=== PATIENT | male | born 1960 | race Caucasian/White ===

== ENCOUNTER 2016-09-13 01:39 | Emergency (ER) | payer BC, OTHER ==
[2016-09-13] MEDS ORDERED: ONDANSETRON 4 MG/2 ML VIAL ONE ×3 (02:21→04:49)
[2016-09-13] MEDS ORDERED: HYDROmorphone 1 MG/ML SYRINGE ONE ×2 (02:21→04:43)
[2016-09-13] MEDS: ONDANSETRON 4 MG/2 ML VIAL IVP STA ×3 (02:34→05:12)
[2016-09-13] MEDS: SODIUM CHLORIDE 0.9% 1,000 ML IV ONE (02:34)
[2016-09-13] MEDS: HYDROmorphone 1 MG/ML SYRINGE IVP STA ×3 (02:34→05:12)
[2016-09-13] MEDS ORDERED: SULFAMETH/TRIMETH DS 800/160 MG TABLET PO ONE (03:31)
[2016-09-13] MEDS ORDERED: metroNIDAZOLE 500 MG/100 ML 100 ML ONE (03:31)
[2016-09-13] MEDS: metroNIDAZOLE 500 MG/100 ML 100 ML IV ONE (03:42)
[2016-09-13] MEDS: SULFAMETH/TRIMETH DS 800/160 MG TABLET PO STA (03:42)
[2016-09-13] MEDS ORDERED: PROMETHAZINE 25 MG/1 ML VIAL ONE (05:16)
[2016-09-13] MEDS: PROMETHAZINE INJ 12.5 MG in SODIUM CHLORIDE 0.9% 50 ML IV STA (05:23)
== END 2016-09-13 06:18 | disposition home or self-care (01) ==
DX: K57.32 Diverticulitis of large intestine without perforation or abscess without bleeding (principal); K40.20 Bilateral inguinal hernia, without obstruction or gangrene, not specified as recurrent; Z91.041 Radiographic dye allergy status
CPT/HCPCS: 36415; 74176; 80053; 81003; 83690; 85025; 96365; 96367; 96375; 96376; 99283; 99285; A9270; J1170

== ENCOUNTER 2019-11-01 18:29 | Outpatient (CLI) | payer OTHER | END 2019-11-01 18:30 | disposition home or self-care (01) | LOC: COV 18:29 | PROVIDERS: ATTEND Family Medicine | DX: R05 Cough (principal); R53.83 Other fatigue; J02.9 Acute pharyngitis, unspecified; R19.7 Diarrhea, unspecified | CPT/HCPCS: 81599 ==